=== PATIENT | male | born 1930 | race Two or more races ===

== ENCOUNTER 2021-07-21 20:31 | Inpatient (IN) | payer OTHER ==
[~2021-07-21] VITALS: Ht 195.6 cm; Wt 110.1 kg
[2021-07-21 22:01] LABS: Basophils # (auto) 0 10 ^3/uL (0-0.2); Hemoglobin 10.5 g/dL (13.5-17.5); Lymphocytes # (auto) 0.6 10 ^3/uL (0.4-5.4)
[2021-07-21 22:03] LABS: Basophils % (auto) 0.4 % (0.0-2.0); Eosinophils # (auto) 0.1 10 ^3/uL (0-0.8); Eosinophils % (auto) 0.6 % (0.0-7.0); Hematocrit 32.7 % (41.0-53.0); Lymphocytes % (auto) 6.4 % (10.0-50.0); Mean Corpuscular Hemoglobin 25.3 pg (28.0-32.0); Mean Corpuscular Hgb Conc. 32.2 g/dL (32.0-36.0); Mean Corpuscular Volume 78.5 fL (80.0-100.0); Monocytes # (auto) 0.6 10 ^3/uL (0-1.3); Monocytes % (auto) 6.1 % (0.0-12.0); Neutrophils # (auto) 8.4 10 ^3/uL (1.6-8.6); Neutrophils % (auto) 86.5 % (37.0-80.0); Red Blood Cells 4.17 10^6/uL (4.5-5.90); Red Cell Distribution Width 15.2 % (11.8-14.3); White Blood Cell 9.7 10^3/uL (4.4-10.8)
[2021-07-21 22:13] LABS: Albumin 3.5 g/dL (3.4-5.0); Calcium 9.3 mg/dL (8.5-10.1); Magnesium 2.9 mg/dL (1.6-2.6); Potassium 4.1 mmol/L (3.5-5.1)
[2021-07-21 22:18] LABS: BUN/Creatinine Ratio 18.3; Bilirubin, Total 0.8 mg/dL (0.2-1.0); Total Protein 8.1 g/dL (6.4-8.2)
[2021-07-21 22:22] LABS: INR 1.2 (0.9-1.15); Partial Thromboplastin Time 27.2 sec (23.6-33.0)
[2021-07-21] MEDS ORDERED: ASPirin 325 MG TAB PO ONE (23:00)
[2021-07-21 23:25] LABS: Urine Bacteria NONE SEEN /hpf (None Seen); Urine Blood 1+ /uL (Negative); Urine Specific Gravity 1.008 (1.001-1.035); Urine WBC <1 /hpf (0 - 3)
[2021-07-21] MEDS ORDERED: MAGNESIUM SULFATE 1GM/100ML 100 ML IV SCH (23:45)
[2021-07-21] MEDS ORDERED: ALBUTEROL SULF 2.5 MG/0.5ML(0.5%) NEB SOLN NEB ONE (23:45)
[2021-07-21] MEDS ORDERED: IPRATROPIUM BROM 0.5 MG/2.5ML INH SOL NEB ONE (23:45)
[2021-07-22] MEDS ORDERED: LORazepam 2MG/ML-1ML VIAL IV ONE
[2021-07-22] MEDS ORDERED: MAGNESIUM SULFATE 1GM/100ML 100 ML IV ONE (00:45)
[2021-07-22] MEDS ORDERED: methylPREDNISolone SOD SUCC 125 MG/2 ML VL IV ONE (01:00)
[2021-07-22] MEDS ORDERED: CLINDAMYCIN 600MG IV 50 ML IV ONE (01:00)
[2021-07-22] MEDS ORDERED: LORazepam 2MG/ML-1ML VIAL IV PRN (01:15)
[2021-07-22] MEDS ORDERED: MORPHINE SULFATE INJECTION 2 MG/ML SYRG IV PRN (01:45)
[2021-07-22] MEDS ORDERED: DOCUSATE SOD 100 MG CAP PO PRN (01:45)
[2021-07-22] MEDS ORDERED: AZITHROMYCIN 250 MG TAB PO ONE (01:45)
[2021-07-22] MEDS ORDERED: NITROGLYCERIN 0.4 MG SL TAB SL PRN (01:45)
[2021-07-22] MEDS ORDERED: CLOPIDOGREL 300 MG TAB PO ONE (01:45)
[2021-07-22] MEDS ORDERED: ONDANSETRON HCL 4 MG/2 ML VIAL IV PRN (01:45)
[2021-07-22] MEDS: CARVEDILOL 3.125 MG TAB PO SCH ×3 (02:50→23:08)
[2021-07-22 03:51] VITALS: BP 119/45
[2021-07-22 04:28] VITALS: BP 121/46
[2021-07-22 04:37] LABS: Basophils # (auto) 0 10 ^3/uL (0-0.2); Basophils % (auto) 0.3 % (0.0-2.0); Eosinophils # (auto) 0 10 ^3/uL (0-0.8); Eosinophils % (auto) 0.2 % (0.0-7.0); Hemoglobin 9.9 g/dL (13.5-17.5); Lymphocytes # (auto) 0.6 10 ^3/uL (0.4-5.4); Lymphocytes % (auto) 6.3 % (10.0-50.0); Mean Corpuscular Hemoglobin 25.1 pg (28.0-32.0); Mean Corpuscular Hgb Conc. 31.9 g/dL (32.0-36.0); Mean Corpuscular Volume 78.6 fL (80.0-100.0); Monocytes # (auto) 0.5 10 ^3/uL (0-1.3); Monocytes % (auto) 5.2 % (0.0-12.0); Neutrophils # (auto) 8.3 10 ^3/uL (1.6-8.6); Red Blood Cells 3.95 10^6/uL (4.5-5.90); Red Cell Distribution Width 15.3 % (11.8-14.3); White Blood Cell 9.5 10^3/uL (4.4-10.8)
[2021-07-22 04:51] LABS: Calcium 9.3 mg/dL (8.5-10.1); Potassium 4.4 mmol/L (3.5-5.1)
[2021-07-22 04:55] LABS: Albumin 3.1 g/dL (3.4-5.0); BUN/Creatinine Ratio 17.9
[2021-07-22 04:58] LABS: Bilirubin, Total 0.9 mg/dL (0.2-1.0); Total Protein 7.4 g/dL (6.4-8.2)
[2021-07-22] MEDS: cefTRIAXone 1GM/50ML D5W 50 ML IV SCH ×2 (04:59→08:16)
[2021-07-22] MEDS: ALBUTEROL SULF 2.5 MG/0.5ML(0.5%) NEB SOLN NEB SCH ×3 (05:31→18:32)
[2021-07-22 05:32] LABS: CRP High Sensitivity 3.58 mg/dL (< 0.3)
[2021-07-22] MEDS: IPRATROPIUM BROM 0.5 MG/2.5ML INH SOL NEB SCH ×3 (05:34→18:32)
[2021-07-22] MEDS ORDERED: CLINDAMYCIN 600MG IV 50 ML IV SCH (06:00)
[2021-07-22] MEDS: methylPREDNISolone SOD SUCC 125 MG/2 ML VL IV SCH ×3 (07:07→23:07)
[2021-07-22] MEDS: ASPirin 81 mg TAB PO SCH (08:16)
[2021-07-22] MEDS: PANTOPRAZOLE 40 MG TAB PO SCH (08:19)
[2021-07-22] MEDS: CLOPIDOGREL BISULFATE 75 MG TAB PO SCH (08:19)
[2021-07-22] MEDS: AZITHROMYCIN 250 MG TAB PO SCH (08:20)
[2021-07-22] MEDS: HEPARIN SODIUM (PORCINE) 5000 UNITS/ML 1ML VIAL SC SCH ×2 (08:28→23:18)
[2021-07-22 09:00] VITALS: BP 119/62
[2021-07-22 13:00] VITALS: BP 141/75
[2021-07-22 16:47] VITALS: BP 128/84
[2021-07-22 22:00] VITALS: BP 140/88
[2021-07-23] MEDS: ALBUTEROL SULF 2.5 MG/0.5ML(0.5%) NEB SOLN NEB SCH ×4 (00:09→18:32)
[2021-07-23] MEDS: IPRATROPIUM BROM 0.5 MG/2.5ML INH SOL NEB SCH ×4 (00:09→18:32)
[2021-07-23 05:00] VITALS: BP 118/56
[2021-07-23 06:04] LABS: Basophils # (auto) 0 10 ^3/uL (0-0.2); Basophils % (auto) 0.1 % (0.0-2.0); Eosinophils # (auto) 0 10 ^3/uL (0-0.8); Hematocrit 29.7 % (41.0-53.0); Hemoglobin 9.6 g/dL (13.5-17.5); Lymphocytes # (auto) 0.6 10 ^3/uL (0.4-5.4); Neutrophils % (auto) 89.8 % (37.0-80.0); White Blood Cell 10.5 10^3/uL (4.4-10.8)
[2021-07-23 06:06] LABS: Lymphocytes % (auto) 5.4 % (10.0-50.0); Mean Corpuscular Hemoglobin 25.3 pg (28.0-32.0); Mean Corpuscular Hgb Conc. 32.4 g/dL (32.0-36.0); Mean Corpuscular Volume 78.3 fL (80.0-100.0); Monocytes # (auto) 0.5 10 ^3/uL (0-1.3); Monocytes % (auto) 4.7 % (0.0-12.0); Neutrophils # (auto) 9.5 10 ^3/uL (1.6-8.6); Nucleated Red Blood Cells % 0.1 %; Red Cell Distribution Width 15.6 % (11.8-14.3)
[2021-07-23 06:16] LABS: Potassium 4.7 mmol/L (3.5-5.1)
[2021-07-23 06:23] LABS: Albumin 2.9 g/dL (3.4-5.0); BUN/Creatinine Ratio 23.4; Bilirubin, Total 0.4 mg/dL (0.2-1.0); Total Protein 7.1 g/dL (6.4-8.2)
[2021-07-23] MEDS: methylPREDNISolone SOD SUCC 125 MG/2 ML VL IV SCH ×3 (07:01→22:11)
[2021-07-23 09:00] VITALS: BP 132/74
[2021-07-23] MEDS: cefTRIAXone 1GM/50ML D5W 50 ML IV SCH (09:53)
[2021-07-23] MEDS: ASPirin 81 mg TAB PO SCH (09:53)
[2021-07-23] MEDS: CARVEDILOL 3.125 MG TAB PO SCH ×2 (09:54→22:12)
[2021-07-23] MEDS: AZITHROMYCIN 250 MG TAB PO SCH (09:54)
[2021-07-23] MEDS: CLOPIDOGREL BISULFATE 75 MG TAB PO SCH (09:54)
[2021-07-23] MEDS: PANTOPRAZOLE 40 MG TAB PO SCH (09:55)
[2021-07-23] MEDS: HEPARIN SODIUM (PORCINE) 5000 UNITS/ML 1ML VIAL SC SCH ×2 (10:05→22:12)
[2021-07-23] MEDS ORDERED: DILT60TA PO ×2 (10:23→10:30)
[2021-07-23] MEDS ORDERED: FURO40TA4 PO ×2 (10:24→10:29)
[2021-07-23] MEDS ORDERED: FLUT1AER6 IN (10:29)
[2021-07-23] MEDS ORDERED: TIOT17SP IN (10:29)
[2021-07-23] MEDS ORDERED: ATOR10TA52 PO (10:29)
[2021-07-23] MEDS ORDERED: ALBUAER3 IN (10:29)
[2021-07-23] MEDS ORDERED: POTA10TA51 PO (10:29)
[2021-07-23] MEDS ORDERED: PANT40TA2 PO (10:29)
[2021-07-23 12:56] VITALS: BP 136/94
[2021-07-23] MEDS ORDERED: CALC1TAB92 PO (15:36)
[2021-07-23] MEDS ORDERED: FERR-20 PO (15:36)
[2021-07-23] MEDS ORDERED: CHOL20007 PO (15:36)
[2021-07-23] MEDS ORDERED: ASPI1TAB20 PO (15:36)
[2021-07-23] MEDS ORDERED: B-COCAP34 (15:36)
[2021-07-23] MEDS ORDERED: ACET-1156 PO (15:36)
[2021-07-23] MEDS ORDERED: DILT60CA PO (15:36)
[2021-07-23] MEDS ORDERED: ASCO500C49 PO (15:36)
[2021-07-23] MEDS ORDERED: MELA3TAB27 PO (15:36)
[2021-07-23] MEDS: ALBUTEROL SULF 2.5 MG/0.5ML(0.5%) NEB SOLN NEB PRN ×2 (15:56→20:52)
[2021-07-23] MEDS: IPRATROPIUM BROM 0.5 MG/2.5ML INH SOL NEB PRN ×2 (15:57→20:52)
[2021-07-23 17:46] VITALS: BP 141/96
[2021-07-23 22:04] VITALS: BP 140/83
[2021-07-24] MEDS: ALBUTEROL SULF 2.5 MG/0.5ML(0.5%) NEB SOLN NEB SCH ×4 (00:13→19:05)
[2021-07-24] MEDS: IPRATROPIUM BROM 0.5 MG/2.5ML INH SOL NEB SCH ×4 (00:13→19:05)
[2021-07-24 05:11] VITALS: BP 148/82
[2021-07-24 06:01] LABS: Basophils # (auto) 0 10 ^3/uL (0-0.2); Eosinophils # (auto) 0 10 ^3/uL (0-0.8); Hemoglobin 10.3 g/dL (13.5-17.5); Lymphocytes # (auto) 0.5 10 ^3/uL (0.4-5.4)
[2021-07-24 06:03] LABS: Hematocrit 31.7 % (41.0-53.0); Lymphocytes % (auto) 5.5 % (10.0-50.0); Mean Corpuscular Hemoglobin 25.6 pg (28.0-32.0); Mean Corpuscular Hgb Conc. 32.6 g/dL (32.0-36.0); Mean Corpuscular Volume 78.5 fL (80.0-100.0); Monocytes # (auto) 0.3 10 ^3/uL (0-1.3); Monocytes % (auto) 2.9 % (0.0-12.0); Neutrophils # (auto) 8.4 10 ^3/uL (1.6-8.6); Neutrophils % (auto) 91.6 % (37.0-80.0); Nucleated Red Blood Cells % 0.2 %; Red Blood Cells 4.03 10^6/uL (4.5-5.90); Red Cell Distribution Width 15.2 % (11.8-14.3); White Blood Cell 9.2 10^3/uL (4.4-10.8)
[2021-07-24 06:21] LABS: Albumin 2.9 g/dL (3.4-5.0); Calcium 9.1 mg/dL (8.5-10.1)
[2021-07-24 06:23] LABS: BUN/Creatinine Ratio 29.6
[2021-07-24 06:36] LABS: Bilirubin, Total 0.3 mg/dL (0.2-1.0); Total Protein 7.3 g/dL (6.4-8.2)
[2021-07-24 08:00] VITALS: BP 151/93
[2021-07-24] MEDS: cefTRIAXone 1GM/50ML D5W 50 ML IV SCH (10:16)
[2021-07-24] MEDS: HEPARIN SODIUM (PORCINE) 5000 UNITS/ML 1ML VIAL SC SCH ×2 (10:17→21:57)
[2021-07-24] MEDS: AZITHROMYCIN 250 MG TAB PO SCH (10:17)
[2021-07-24] MEDS: PANTOPRAZOLE 40 MG TAB PO SCH (10:18)
[2021-07-24] MEDS: ASPirin 81 mg TAB PO SCH (10:18)
[2021-07-24] MEDS: CLOPIDOGREL BISULFATE 75 MG TAB PO SCH (10:19)
[2021-07-24] MEDS: CARVEDILOL 3.125 MG TAB PO SCH ×2 (10:19→21:55)
[2021-07-24 12:00] VITALS: BP 137/97
[2021-07-24 17:00] VITALS: BP 123/79
[2021-07-24 20:31] VITALS: BP 123/79
[2021-07-24 22:00] VITALS: BP 123/85
[2021-07-25] VITALS (87 sets, daily range): BP systolic 76–149; BP diastolic 47–94
[2021-07-25] MEDS: IPRATROPIUM BROM 0.5 MG/2.5ML INH SOL NEB SCH ×4 (00:15→18:11)
[2021-07-25] MEDS: ALBUTEROL SULF 2.5 MG/0.5ML(0.5%) NEB SOLN NEB SCH ×4 (00:15→18:11)
[2021-07-25] MEDS ORDERED: PROPOFOL 100 ML IV ONE (03:52)
[2021-07-25] MEDS: MIDAZOLAM DRIP 50 mg/50mL 50 ML IV SCH ×2 (04:00→20:30)
[2021-07-25] MEDS: PROPOFOL 100 ML IV SCH (04:00)
[2021-07-25] MEDS ORDERED: NOREPINEPHRINE 8 MG/250ML KIT 250 ML IV ONE (04:32)
[2021-07-25 04:40] LABS: Basophils # (auto) 0 10 ^3/uL (0-0.2); Eosinophils # (auto) 0 10 ^3/uL (0-0.8); Hemoglobin 9.8 g/dL (13.5-17.5); Nucleated Red Blood Cells % 0.3 %
[2021-07-25 04:42] LABS: Basophils % (auto) 0.1 % (0.0-2.0); Hematocrit 30.9 % (41.0-53.0); Lymphocytes # (auto) 0.4 10 ^3/uL (0.4-5.4); Lymphocytes % (auto) 6.6 % (10.0-50.0); Mean Corpuscular Hemoglobin 24.9 pg (28.0-32.0); Mean Corpuscular Hgb Conc. 31.7 g/dL (32.0-36.0); Mean Corpuscular Volume 78.7 fL (80.0-100.0); Monocytes # (auto) 0.4 10 ^3/uL (0-1.3); Monocytes % (auto) 6.2 % (0.0-12.0); Neutrophils # (auto) 5.9 10 ^3/uL (1.6-8.6); Neutrophils % (auto) 87.1 % (37.0-80.0); Red Blood Cells 3.93 10^6/uL (4.5-5.90); Red Cell Distribution Width 15.6 % (11.8-14.3); White Blood Cell 6.8 10^3/uL (4.4-10.8)
[2021-07-25 04:57] LABS: Albumin 2.7 g/dL (3.4-5.0); Calcium 8.4 mg/dL (8.5-10.1); Magnesium 2.9 mg/dL (1.6-2.6)
[2021-07-25] MEDS: NOREPINEPHRINE 8 MG/250ML KIT 250 ML IV SCH (05:01)
[2021-07-25 05:04] LABS: Bilirubin, Total 0.3 mg/dL (0.2-1.0); Total Protein 6.8 g/dL (6.4-8.2)
[2021-07-25] MEDS ORDERED: FUROSEMIDE 20 MG/2 ML VIAL IV ONE (08:30)
[2021-07-25] MEDS: cefTRIAXone 1GM/50ML D5W 50 ML IV SCH (10:32)
[2021-07-25] MEDS: ASPirin 81 mg TAB PO SCH (10:32)
[2021-07-25] MEDS: CLOPIDOGREL BISULFATE 75 MG TAB PO SCH (10:32)
[2021-07-25] MEDS: CARVEDILOL 3.125 MG TAB PO SCH ×2 (10:32→22:05)
[2021-07-25] MEDS: HEPARIN SODIUM (PORCINE) 5000 UNITS/ML 1ML VIAL SC SCH (11:02)
[2021-07-25] MEDS ORDERED: PANTOPRAZOLE 40 MG/10 ML VIAL INJ IV SCH (11:15)
[2021-07-25] MEDS: AZITHROMYCIN 250 MG TAB PO SCH (11:56)
[2021-07-25 16:16] LABS: Hemoglobin 9.7 g/dL (13.5-17.5)
[2021-07-25 16:18] LABS: Hematocrit 30.3 % (41.0-53.0)
[2021-07-25] MEDS: PANTOPRAZOLE 40 MG/10 ML VIAL INJ IV SCH (22:05)
[2021-07-26] VITALS (102 sets, daily range): BP systolic 68–133; BP diastolic 44–85
[2021-07-26] MEDS: IPRATROPIUM BROM 0.5 MG/2.5ML INH SOL NEB SCH ×4 (00:13→18:29)
[2021-07-26] MEDS: ALBUTEROL SULF 2.5 MG/0.5ML(0.5%) NEB SOLN NEB SCH ×4 (00:13→18:29)
[2021-07-26 01:12] LABS: Hematocrit 32.7 % (41.0-53.0); Hemoglobin 10.5 g/dL (13.5-17.5)
[2021-07-26] MEDS: MIDAZOLAM DRIP 50 mg/50mL 50 ML IV SCH (03:20)
[2021-07-26 03:48] LABS: Basophils # (auto) 0 10 ^3/uL (0-0.2); Eosinophils # (auto) 0 10 ^3/uL (0-0.8); Eosinophils % (auto) 0.2 % (0.0-7.0); Lymphocytes # (auto) 0.6 10 ^3/uL (0.4-5.4); Nucleated Red Blood Cells % 0.1 %
[2021-07-26 03:49] LABS: Basophils % (auto) 0.2 % (0.0-2.0); Hemoglobin 9.8 g/dL (13.5-17.5); Lymphocytes % (auto) 6.4 % (10.0-50.0); Mean Corpuscular Hemoglobin 25.6 pg (28.0-32.0); Mean Corpuscular Hgb Conc. 32.6 g/dL (32.0-36.0); Mean Corpuscular Volume 78.4 fL (80.0-100.0); Monocytes % (auto) 10.1 % (0.0-12.0); Neutrophils % (auto) 83.1 % (37.0-80.0); Red Blood Cells 3.83 10^6/uL (4.5-5.90); Red Cell Distribution Width 15.4 % (11.8-14.3); White Blood Cell 9.6 10^3/uL (4.4-10.8)
[2021-07-26] MEDS: PROPOFOL 100 ML IV SCH (04:00)
[2021-07-26 04:19] LABS: Albumin 2.5 g/dL (3.4-5.0); BUN/Creatinine Ratio 37.9; Calcium 8.3 mg/dL (8.5-10.1); Potassium 4.3 mmol/L (3.5-5.1)
[2021-07-26 04:22] LABS: Bilirubin, Total 0.4 mg/dL (0.2-1.0); Total Protein 6.3 g/dL (6.4-8.2)
[2021-07-26] MEDS: NOREPINEPHRINE 8 MG/250ML KIT 250 ML IV SCH (04:45)
[2021-07-26] MEDS: cefTRIAXone 1GM/50ML D5W 50 ML IV SCH (09:02)
[2021-07-26] MEDS: ASPirin 81 mg TAB PO SCH (09:24)
[2021-07-26] MEDS: CARVEDILOL 3.125 MG TAB PO SCH ×2 (09:24→22:00)
[2021-07-26] MEDS: PANTOPRAZOLE 40 MG/10 ML VIAL INJ IV SCH ×2 (09:24→21:37)
[2021-07-26 13:05] LABS: Hemoglobin 9.6 g/dL (13.5-17.5)
[2021-07-26 13:07] LABS: Hematocrit 29.4 % (41.0-53.0)
[2021-07-27] VITALS (102 sets, daily range): BP systolic 79–140; BP diastolic 31–86
[2021-07-27] MEDS: IPRATROPIUM BROM 0.5 MG/2.5ML INH SOL NEB SCH ×2 (00:35→18:13)
[2021-07-27] MEDS: ALBUTEROL SULF 2.5 MG/0.5ML(0.5%) NEB SOLN NEB SCH ×2 (00:35→18:13)
[2021-07-27 01:18] LABS: Hematocrit 29.7 % (41.0-53.0); Hemoglobin 9.8 g/dL (13.5-17.5)
[2021-07-27 04:15] LABS: Basophils # (auto) 0 10 ^3/uL (0-0.2); Eosinophils # (auto) 0.1 10 ^3/uL (0-0.8); Hemoglobin 9.4 g/dL (13.5-17.5); White Blood Cell 8.6 10^3/uL (4.4-10.8)
[2021-07-27 04:20] LABS: Basophils % (auto) 0.1 % (0.0-2.0); Hematocrit 28.6 % (41.0-53.0); Lymphocytes # (auto) 0.8 10 ^3/uL (0.4-5.4); Lymphocytes % (auto) 9.1 % (10.0-50.0); Mean Corpuscular Hemoglobin 25.6 pg (28.0-32.0); Mean Corpuscular Hgb Conc. 32.9 g/dL (32.0-36.0); Mean Corpuscular Volume 77.7 fL (80.0-100.0); Monocytes # (auto) 0.6 10 ^3/uL (0-1.3); Monocytes % (auto) 7.6 % (0.0-12.0); Neutrophils % (auto) 82.2 % (37.0-80.0); Nucleated Red Blood Cells % 0.2 %; Red Blood Cells 3.67 10^6/uL (4.5-5.90); Red Cell Distribution Width 15.5 % (11.8-14.3)
[2021-07-27 04:35] LABS: Albumin 2.4 g/dL (3.4-5.0); Calcium 8.4 mg/dL (8.5-10.1); Potassium 4.1 mmol/L (3.5-5.1)
[2021-07-27 04:37] LABS: BUN/Creatinine Ratio 39.9
[2021-07-27 04:40] LABS: Bilirubin, Total 0.5 mg/dL (0.2-1.0); Total Protein 6.2 g/dL (6.4-8.2)
[2021-07-27] MEDS: NOREPINEPHRINE 8 MG/250ML KIT 250 ML IV SCH (05:09)
[2021-07-27] MEDS: PROPOFOL 100 ML IV SCH (09:20)
[2021-07-27] MEDS: MIDAZOLAM DRIP 50 mg/50mL 50 ML IV SCH (09:20)
[2021-07-27] MEDS: PANTOPRAZOLE 40 MG/10 ML VIAL INJ IV SCH ×2 (09:25→22:26)
[2021-07-27] MEDS: CARVEDILOL 3.125 MG TAB PO SCH ×2 (09:26→22:27)
[2021-07-27] MEDS: ASPirin 81 mg TAB PO SCH (09:26)
[2021-07-27] MEDS: cefTRIAXone 1GM/50ML D5W 50 ML IV SCH (09:27)
[2021-07-27] MEDS ORDERED: PANTOPRAZOLE 40 MG/10 ML VIAL INJ IV SCH (10:00)
[2021-07-27 12:16] LABS: Hematocrit 29.1 % (41.0-53.0); Hemoglobin 9.3 g/dL (13.5-17.5)
[2021-07-27] MEDS: ACETAMINOPHEN 325 MG TAB PO PRN (16:23)
[2021-07-28] VITALS (85 sets, daily range): BP systolic 85–131; BP diastolic 45–80
[2021-07-28] MEDS: ALBUTEROL SULF 2.5 MG/0.5ML(0.5%) NEB SOLN NEB SCH ×4 (00:11→18:00)
[2021-07-28] MEDS: IPRATROPIUM BROM 0.5 MG/2.5ML INH SOL NEB SCH ×4 (00:11→18:00)
[2021-07-28 00:56] LABS: Hematocrit 29.4 % (41.0-53.0); Hemoglobin 9.3 g/dL (13.5-17.5)
[2021-07-28] MEDS: MIDAZOLAM DRIP 50 mg/50mL 50 ML IV SCH ×2 (04:00→20:50)
[2021-07-28] MEDS: PROPOFOL 100 ML IV SCH ×2 (04:00→20:50)
[2021-07-28] MEDS: NOREPINEPHRINE 8 MG/250ML KIT 250 ML IV SCH (04:02)
[2021-07-28] MEDS: cefTRIAXone 1GM/50ML D5W 50 ML IV SCH (08:48)
[2021-07-28] MEDS: CLOPIDOGREL BISULFATE 75 MG TAB PO SCH (10:00)
[2021-07-28] MEDS: HEPARIN SODIUM (PORCINE) 5000 UNITS/ML 1ML VIAL SC SCH ×2 (10:00→20:50)
[2021-07-28] MEDS: CARVEDILOL 3.125 MG TAB PO SCH ×2 (10:00→20:49)
[2021-07-28] MEDS: ASPirin 81 mg TAB PO SCH (10:00)
[2021-07-28] MEDS: PANTOPRAZOLE 40 MG/10 ML VIAL INJ IV SCH ×2 (10:07→20:49)
[2021-07-28] MEDS: ACETAMINOPHEN 325 MG TAB PO PRN (10:11)
[2021-07-28 13:29] LABS: Hematocrit 28.4 % (41.0-53.0); Hemoglobin 9.3 g/dL (13.5-17.5)
[2021-07-29] VITALS (29 sets, daily range): BP systolic 114–142; BP diastolic 55–86
[2021-07-29] MEDS: IPRATROPIUM BROM 0.5 MG/2.5ML INH SOL NEB SCH ×3 (00:42→18:31)
[2021-07-29] MEDS: ALBUTEROL SULF 2.5 MG/0.5ML(0.5%) NEB SOLN NEB SCH ×4 (00:42→18:31)
[2021-07-29] MEDS: NOREPINEPHRINE 8 MG/250ML KIT 250 ML IV SCH (04:22)
[2021-07-29 05:02] LABS: Basophils # (auto) 0 10 ^3/uL (0-0.2); Basophils % (auto) 0.3 % (0.0-2.0); Eosinophils # (auto) 0.1 10 ^3/uL (0-0.8); Hematocrit 28.1 % (41.0-53.0); Lymphocytes # (auto) 0.6 10 ^3/uL (0.4-5.4); Lymphocytes % (auto) 5.7 % (10.0-50.0); Mean Corpuscular Hemoglobin 25.3 pg (28.0-32.0); Mean Corpuscular Hgb Conc. 32.1 g/dL (32.0-36.0); Mean Corpuscular Volume 78.7 fL (80.0-100.0); Monocytes # (auto) 0.7 10 ^3/uL (0-1.3); Neutrophils # (auto) 9.1 10 ^3/uL (1.6-8.6); Nucleated Red Blood Cells % 0.3 %; Red Blood Cells 3.57 10^6/uL (4.5-5.90); Red Cell Distribution Width 15.6 % (11.8-14.3); White Blood Cell 10.6 10^3/uL (4.4-10.8)
[2021-07-29 05:21] LABS: Albumin 2.3 g/dL (3.4-5.0); Calcium 8.5 mg/dL (8.5-10.1); Potassium 3.9 mmol/L (3.5-5.1)
[2021-07-29 05:24] LABS: BUN/Creatinine Ratio 36.7; Bilirubin, Total 0.4 mg/dL (0.2-1.0); Total Protein 6.3 g/dL (6.4-8.2)
[2021-07-29] MEDS: cefTRIAXone 1GM/50ML D5W 50 ML IV SCH (08:50)
[2021-07-29] MEDS ORDERED: predniSONE 20 MG TAB PO ONE (10:00)
[2021-07-29] MEDS: CARVEDILOL 3.125 MG TAB PO SCH ×2 (10:00→22:00)
[2021-07-29] MEDS: HEPARIN SODIUM (PORCINE) 5000 UNITS/ML 1ML VIAL SC SCH (10:00)
[2021-07-29] MEDS: ASPirin 81 mg TAB PO SCH (10:00)
[2021-07-29] MEDS: CLOPIDOGREL BISULFATE 75 MG TAB PO SCH (10:00)
[2021-07-29] MEDS: PANTOPRAZOLE 40 MG/10 ML VIAL INJ IV SCH (10:00)
[2021-07-29] MEDS: D5W/SOD CHL 0.45% 1,000 ML IV SCH (11:15)
[2021-07-29 14:10] LABS: Hemoglobin 8.9 g/dL (13.5-17.5)
[2021-07-29 14:12] LABS: Hematocrit 28.4 % (41.0-53.0)
[2021-07-29] MEDS: PANTOPRAZOLE 40mg/50ML NS AE 50 ML IV SCH ×2 (16:14→22:28)
[2021-07-29] MEDS: PROPOFOL 100 ML IV SCH (19:32)
[2021-07-29] MEDS: MIDAZOLAM DRIP 50 mg/50mL 50 ML IV SCH (19:32)
[2021-07-29 23:01] LABS: Hemoglobin 7.5 g/dL (13.5-17.5)
[2021-07-29 23:03] LABS: Hematocrit 23.9 % (41.0-53.0)
[2021-07-30] VITALS (18 sets, daily range): BP systolic 111–137; BP diastolic 58–84
[2021-07-30] MEDS: D5W/SOD CHL 0.45% 1,000 ML IV SCH (00:35)
[2021-07-30] MEDS: ALBUTEROL SULF 2.5 MG/0.5ML(0.5%) NEB SOLN NEB SCH ×3 (00:46→18:52)
[2021-07-30] MEDS: IPRATROPIUM BROM 0.5 MG/2.5ML INH SOL NEB SCH ×3 (00:46→18:52)
[2021-07-30] MEDS: PANTOPRAZOLE 40mg/50ML NS AE 50 ML IV SCH ×4 (01:26→16:45)
[2021-07-30] MEDS: NOREPINEPHRINE 8 MG/250ML KIT 250 ML IV SCH (01:27)
[2021-07-30] MEDS ORDERED: FUROSEMIDE 20 MG/2 ML VIAL IV ONE (04:15)
[2021-07-30 07:33] LABS: Basophils # (auto) 0 10 ^3/uL (0-0.2); Eosinophils # (auto) 0.1 10 ^3/uL (0-0.8); Hematocrit 27.5 % (41.0-53.0); Hemoglobin 8.9 g/dL (13.5-17.5); Mean Corpuscular Hemoglobin 25.9 pg (28.0-32.0); Mean Corpuscular Hgb Conc. 32.2 g/dL (32.0-36.0); Monocytes # (auto) 0.7 10 ^3/uL (0-1.3); Neutrophils # (auto) 7.9 10 ^3/uL (1.6-8.6); Red Blood Cells 3.42 10^6/uL (4.5-5.90)
[2021-07-30 07:35] LABS: Basophils % (auto) 0.3 % (0.0-2.0); Eosinophils % (auto) 1.1 % (0.0-7.0); Lymphocytes # (auto) 0.6 10 ^3/uL (0.4-5.4); Lymphocytes % (auto) 6.2 % (10.0-50.0); Mean Corpuscular Volume 80.4 fL (80.0-100.0); Monocytes % (auto) 7.6 % (0.0-12.0); Neutrophils % (auto) 84.8 % (37.0-80.0); Nucleated Red Blood Cells % 0.3 %; Red Cell Distribution Width 16.3 % (11.8-14.3); White Blood Cell 9.3 10^3/uL (4.4-10.8)
[2021-07-30 07:51] LABS: Albumin 2.2 g/dL (3.4-5.0); Calcium 8.2 mg/dL (8.5-10.1)
[2021-07-30 07:56] LABS: BUN/Creatinine Ratio 29.9; Bilirubin, Total 0.7 mg/dL (0.2-1.0)
[2021-07-30] MEDS: predniSONE 20 MG TAB PO SCH (10:07)
[2021-07-30] MEDS: cefTRIAXone 1GM/50ML D5W 50 ML IV SCH (10:07)
[2021-07-30] MEDS: CARVEDILOL 3.125 MG TAB PO SCH ×2 (10:09→21:44)
[2021-07-30 10:30] LABS: Hemoglobin 9.1 g/dL (13.5-17.5)
[2021-07-30 10:33] LABS: Hematocrit 28.2 % (41.0-53.0)
[2021-07-30] MEDS: D5W 5% 1,000 ML IV SCH (12:54)
[2021-07-30 14:28] LABS: Hematocrit 28.3 % (41.0-53.0)
[2021-07-30] MEDS ORDERED: LIDOCAINE VISCOUS 2% 15ML UD ONE (16:20)
[2021-07-30] MEDS: MIDAZOLAM HCL 5 MG/ML-1ML VIAL ONE ×2 (16:23→16:26)
[2021-07-30] MEDS: fentaNYL CITRATE 100 MCG/2 ML VL ONE ×2 (16:23→16:26)
[2021-07-30] MEDS: SUCRALFATE 1 GM/10 ML ORAL SUSP PO SCH ×2 (18:29→21:44)
[2021-07-30 23:27] LABS: Hematocrit 28.6 % (41.0-53.0); Hemoglobin 9.1 g/dL (13.5-17.5)
[2021-07-31] MEDS: D5W 5% 1,000 ML IV SCH ×2 (04:37→13:10)
[2021-07-31] MEDS: SUCRALFATE 1 GM/10 ML ORAL SUSP PO SCH ×4 (06:21→23:45)
[2021-07-31 06:26] LABS: Albumin 2.3 g/dL (3.4-5.0); Calcium 8.3 mg/dL (8.5-10.1); Potassium 4.4 mmol/L (3.5-5.1)
[2021-07-31 06:27] LABS: Basophils # (auto) 0 10 ^3/uL (0-0.2); Basophils % (auto) 0.3 % (0.0-2.0); Eosinophils # (auto) 0 10 ^3/uL (0-0.8); Eosinophils % (auto) 0.1 % (0.0-7.0); Hematocrit 28.5 % (41.0-53.0); Hemoglobin 8.8 g/dL (13.5-17.5); Lymphocytes # (auto) 0.7 10 ^3/uL (0.4-5.4); Lymphocytes % (auto) 8.2 % (10.0-50.0); Mean Corpuscular Hemoglobin 25.7 pg (28.0-32.0); Monocytes # (auto) 0.6 10 ^3/uL (0-1.3); Monocytes % (auto) 6.7 % (0.0-12.0); Neutrophils # (auto) 7.7 10 ^3/uL (1.6-8.6); Neutrophils % (auto) 84.7 % (37.0-80.0); Nucleated Red Blood Cells % 0.6 %; Red Blood Cells 3.44 10^6/uL (4.5-5.90); Red Cell Distribution Width 16.3 % (11.8-14.3); White Blood Cell 9.1 10^3/uL (4.4-10.8)
[2021-07-31 06:28] LABS: BUN/Creatinine Ratio 25.7
[2021-07-31] MEDS: IPRATROPIUM BROM 0.5 MG/2.5ML INH SOL NEB SCH ×4 (06:30→19:00)
[2021-07-31] MEDS: ALBUTEROL SULF 2.5 MG/0.5ML(0.5%) NEB SOLN NEB SCH ×4 (06:30→19:00)
[2021-07-31 06:31] LABS: Bilirubin, Total 0.3 mg/dL (0.2-1.0); Total Protein 6.4 g/dL (6.4-8.2)
[2021-07-31 09:06] VITALS: BP 106/68
[2021-07-31] MEDS: predniSONE 20 MG TAB PO SCH (10:00)
[2021-07-31] MEDS: CARVEDILOL 3.125 MG TAB PO SCH ×2 (10:00→23:46)
[2021-07-31 13:00] VITALS: BP 125/68
[2021-07-31 14:48] LABS: Hematocrit 28.3 % (41.0-53.0); Hemoglobin 8.9 g/dL (13.5-17.5)
[2021-07-31 17:04] VITALS: BP 121/84
[2021-07-31] MEDS ORDERED: HYDROcodone-ACET 5/325MG TAB PO PRN (17:45)
[2021-07-31 22:00] VITALS: BP 127/67
[2021-07-31] MEDS ORDERED: LACTULOSE 20Gm/30ML SOLN PO SCH (22:00)
[2021-08-01] MEDS: ALBUTEROL SULF 2.5 MG/0.5ML(0.5%) NEB SOLN NEB SCH (00:28)
[2021-08-01] MEDS: IPRATROPIUM BROM 0.5 MG/2.5ML INH SOL NEB SCH (00:28)
[2021-08-01] MEDS ORDERED: EPINEPHrine HCL 1 MG/10 ML SYRG IV ONE (02:39)
[2021-08-01] MEDS ORDERED: PANTOPRAZOLE 40 MG TAB PO SCH (10:00)
== END 2021-08-01 02:40 | disposition short-term general hospital (02) | DRG 208 ==
LOC: EDBD 20:31 → ER 20:41 → TELE 07-22 01:45 → TELE-WESTW 07-22 10:39 → ICU WEST 07-25 03:41 → TELE-EAST 07-30 12:07
PROVIDERS: ADMIT Internal Medicine; ATTEND Internal Medicine
PROC: 5A09357 Assistance with Respiratory Ventilation, Less than 24 Consecutive Hours, Continuous Positive Airway Pressure (ICD-10-PCS; 2021-07-22)
PROC: 5A09357 Assistance with Respiratory Ventilation, Less than 24 Consecutive Hours, Continuous Positive Airway Pressure (ICD-10-PCS; 2021-07-23)
PROC: 5A1945Z Respiratory Ventilation, 24-96 Consecutive Hours (ICD-10-PCS; principal; 2021-07-25)
PROC: 0BH17EZ Insertion of Endotracheal Airway into Trachea, Via Natural or Artificial Opening (ICD-10-PCS; 2021-07-25)
PROC: 30233N1 Transfusion of Nonautologous Red Blood Cells into Peripheral Vein, Percutaneous Approach (ICD-10-PCS; 2021-07-30)
PROC: 0DB68ZX Excision of Stomach, Via Natural or Artificial Opening Endoscopic, Diagnostic (ICD-10-PCS; 2021-07-30)
DX: J96.21 Acute and chronic respiratory failure with hypoxia (principal); I21.4 Non-ST elevation (NSTEMI) myocardial infarction; J18.9 Pneumonia, unspecified organism; I50.21 Acute systolic (congestive) heart failure; N17.9 Acute kidney failure, unspecified; J44.1 Chronic obstructive pulmonary disease with (acute) exacerbation; L03.115 Cellulitis of right lower limb; L03.116 Cellulitis of left lower limb; J44.0 Chronic obstructive pulmonary disease with (acute) lower respiratory infection; J98.11 Atelectasis; K92.2 Gastrointestinal hemorrhage, unspecified; E87.0 Hyperosmolality and hypernatremia; E87.1 Hypo-osmolality and hyponatremia; I13.0 Hypertensive heart and chronic kidney disease with heart failure and stage 1 through stage 4 chronic kidney disease, or unspecified chronic kidney disease; L97.919 Non-pressure chronic ulcer of unspecified part of right lower leg with unspecified severity; J96.22 Acute and chronic respiratory failure with hypercapnia; K31.9 Disease of stomach and duodenum, unspecified; K44.9 Diaphragmatic hernia without obstruction or gangrene; I48.0 Paroxysmal atrial fibrillation; D50.9 Iron deficiency anemia, unspecified; E78.5 Hyperlipidemia, unspecified; N18.30 Chronic kidney disease, stage 3 unspecified; Z20.822 Contact with and (suspected) exposure to COVID-19; R31.9 Hematuria, unspecified; R79.89 Other specified abnormal findings of blood chemistry; I25.5 Ischemic cardiomyopathy; I25.10 Atherosclerotic heart disease of native coronary artery without angina pectoris; E86.0 Dehydration; F41.9 Anxiety disorder, unspecified; Z90.49 Acquired absence of other specified parts of digestive tract; Z82.5 Family history of asthma and other chronic lower respiratory diseases; Z99.81 Dependence on supplemental oxygen
CPT/HCPCS: 36415; 36600; 43239; 71045; 71250; 74176; 76775; 78582; 80053; 80061; 81001; 82270; 82805; 82962; 83036; 83735; 83880; 84484; 85014; 85018; 85025; 85379; 85610; 85730; 86141; 86850; 86900; 86901; 86920; 87040; 87070; 87081; 87205; 92507; 93005; 93306; 93970; 94002; 94003; 94640; 94660; 96365; 96375; 99291; C9113; G0378; J0696; J2250; J2405; J2704; J3490; J7060